=== PATIENT | female | born 1950 | race Caucasian/White ===

== ENCOUNTER 2018-03-19 22:03 | Emergency (ER) | payer MEDICARE, BC ==
[2018-03-19] MEDS ORDERED: Ondansetron 4 MG/2 ML SDV IVPUSH ONE (23:11)
[2018-03-19] MEDS ORDERED: Sodium Chloride 0.9% 10 ML Syringe FLUSH PRN (23:11)
[2018-03-19] MEDS ORDERED: HYDROmorphone 1 MG/ML Syringe IVPUSH ONE (23:11)
[2018-03-19] MEDS ORDERED: Iopamidol 612 MG/ML 100 ML Bottle IV PRN (23:20)
[2018-03-19] MEDS ORDERED: Sodium Chloride 0.9% 75 ML IV SCH (23:30)
[2018-03-20] MEDS ORDERED: Magnesium Citrate Solution 296 ML Bottle PO ONE (00:50)
--- NOTE | 2018-03-20 01:09 | EDM.PDOC ---
ED HPI GENERAL MEDICAL PROBLEM - General Chief Complaint: Abdominal Pain Stated Complaint: RI SIDE PAIN Time Seen by Provider: 03/19/18 23:00 Source of Information: Reports: Patient, Family History Limitations: Reports: No Limitations - History of Present Illness INITIAL COMMENTS - FREE TEXT/NARRATIVE: This lady underwent an exploratory laparotomy February 01 for colorectal and breast cancer. Cancer was extensive enough that they just closed her up without doing any further surgery. She did well afterwards but tonight she complains of right sided pain all day. Chills. BM's ok no vomiting. Abdominal Pain Score (Numeric/FACES): 5 - Related Data Allergies Allergy/AdvReac Type Severity Reaction Status Date / Time morphine Allergy Nausea Verified 03/19/18 22:25 Home Meds: Home Meds Acetaminophen [Tylenol Extra Strength] 2 tab PO Q6HR PRN 03/19/18 [History] Anastrozole [Arimidex] 1 tab PO DAILY 03/19/18 [History] Aspirin 1 tab PO DAILY 03/19/18 [History] Cholecalciferol (Vitamin D3) [Vitamin D3] 1 tab PO DAILY 03/19/18 [History] Ibuprofen 1 tab PO Q6HR PRN 03/19/18 [History] Magnesium 2 tab PO DAILY 03/19/18 [History] Simvastatin [Zocor] 1 tab PO DAILY 03/19/18 [History] sulfaSALAzine [Azulfidine] 3 tab PO BID 03/19/18 [History] Past Medical History HEENT History: Reports: Impaired Vision Genitourinary History: Reports: Other (See Below) Other Genitourinary History: has only one functioning kidney since [employer] History: Reports: Oncologic (Cancer) History: Reports: Breast, Colon - Infectious Disease History Infectious Disease History: Reports: Chicken Pox, Measles, Mumps - Past Surgical History HEENT Surgical History: Reports: Tonsillectomy GI Surgical History: Reports: Other (See Below) Other GI Surgeries/Procedures: abd surgery at [facility] on march 03 opened and closed for colon ca Musculoskeletal Surgical History: Reports: Knee Replacement, Other (See Below) Other Musculoskeletal Surgeries/Procedures:: wrist surgery, rotator cuff right shoulder Social & Family History - Family History Family Medical History: Noncontributory - Tobacco Use Smoking Status *Q: Never Smoker - Caffeine Use Caffeine Use: Reports: Coffee - Recreational Drug Use Recreational Drug Use: No ED ROS GENERAL - Review of Systems Review Of Systems: See Below Constitutional: Reports: Chills HEENT: Reports: No Symptoms Respiratory: Reports: No Symptoms Cardiovascular: Reports: No Symptoms Endocrine: Reports: No Symptoms GI/Abdominal: Reports: Abdominal Pain : Reports: No Symptoms Musculoskeletal: Reports: No Symptoms Skin: Reports: No Symptoms Neurological: Reports: No Symptoms ED EXAM, GI/ABD - Physical Exam Exam: See Below Exam Limited By: No Limitations General Appearance: Alert, WD/WN, Mild Distress Eyes: Bilateral: Normal Appearance Neck: Normal Inspection Respiratory/Chest: Lungs Clear Cardiovascular: Regular Rate, Rhythm, No Murmur GI/Abdominal Exam: Soft, Mass (Right sided mass moderate tenderness) Extremities: Normal Inspection Neurological: Alert, Oriented Course - Vital Signs Last Recorded V/S: Last Vital Signs Temp 37.5 C 03/19/18 22:33 Pulse 97 03/20/18 00:35 Resp 16 03/20/18 00:35 BP 117/52 L 03/20/18 00:35 Pulse Ox 93 L 03/20/18 00:35 - Orders/Labs/Meds Orders: Active Orders 24 hr Category Date Time Status Abdomen Pelvis w Cont [CT] Stat Exams 03/19/18 23:11 Taken UA W/MICROSCOPIC [URIN] Urgent Lab 03/19/18 23:31 Ordered Iopamidol [Isovue-300 (61%)] Med 03/19/18 23:20 Active 100 ml IV . DIRECTED PRN Sodium Chloride 0.9% [Normal Saline] 75 ml Med 03/19/18 23:30 Active IV ASDIRECTED Sodium Chloride 0.9% [Saline Flush] Med 03/19/18 23:11 Active 10 ml FLUSH ASDIRECTED PRN Saline Lock Insert [OM.PC] Urgent Oth 03/19/18 23:10 Ordered Medication Orders Sodium Chloride (Normal Saline) 75 mls @ 3.1 mls/sec IV ASDIRECTED [facility] Last Admin: 03/19/18 23:55 Dose: 3.1 mls/sec Iopamidol (Isovue-300 (61%)) 100 ml IV . DIRECTED PRN PRN Reason: RADIOLOGY EXAM Stop: 03/20/18 23:21 Last Admin: 03/19/18 23:55 Dose: 100 ml Sodium Chloride (Saline Flush) 10 ml FLUSH ASDIRECTED PRN PRN Reason: Keep Vein Open Last Admin: 03/19/18 23:26 Dose: 10 ml Labs: Laboratory Tests 03/19/18 03/19/18 03/19/18 Range/Units 23:22 23:22 23:22 WBC 3.4 L (4.5-11.0) K/uL RBC 3.72 (3.30-5.50) M/uL Hgb 11.9 L (12.0-15.0) g/dL Hct 37.5 (36.0-48.0) % MCV 101 H (80-98) fL MCH 32 H (27-31) pg MCHC 32 (32-36) % Plt Count 266 (150-400) K/uL Neut % (Auto) 59 (36-66) % Lymph % (Auto) 10 L (24-44) % [place] % (Auto) 20 H (2-6) % Eos % (Auto) 11 H (2-4) % Baso % (Auto) 0 (0-1) % Sodium 138 L (140-148) mmol/L Potassium 3.8 (3.6-5.2) mmol/L Chloride 100 (100-108) mmol/L Carbon Dioxide 30 (21-32) mmol/L Anion Gap 11.8 (5.0-14.0) mmol/L BUN 12 (7-18) mg/dL Creatinine 0.8 (0.6-1.0) mg/dL Est Cr Clr Drug Dosing 58.12 mL/min Estimated GFR (MDRD) > 60 (>60) Glucose 141 H (74-106) mg/dL Calcium 9.5 (8.5-10.1) mg/dL Total Bilirubin 0.3 (0.2-1.0) mg/dL AST 48 H (15-37) U/L ALT 61 (12-78) U/L Alkaline Phosphatase 115 (46-116) U/L Total Protein 7.5 (6.4-8.2) g/dL Albumin 3.6 (3.4-5.0) g/dL Globulin 3.9 H (2.3-3.5) g/dL Albumin/Globulin Ratio 0.9 L (1.2-2.2) Amylase 30 (25-115) U/L Lipase 74 (73-393) U/L Urine Color Urine Appearance Urine pH (4.5-8.0) Ur Specific [place] (1.008-1.030) Urine Protein (NEGATIVE) mg/dL Urine Glucose (UA) (NEGATIVE) mg/dL Urine Ketones (NEGATIVE) mg/dL Urine Occult Blood (NEGATIVE) Urine Nitrite (NEGATIVE) Urine Bilirubin (NEGATIVE) Urine Urobilinogen (NORMAL) mg/dL Ur Leukocyte Esterase (NEGATIVE) Urine RBC (0-5) Urine WBC (0-5) Ur Epithelial Cells Amorphous Sediment Urine Bacteria Urine Mucus 03/19/18 Range/Units 23:31 WBC (4.5-11.0) K/uL RBC (3.30-5.50) M/uL Hgb (12.0-15.0) g/dL Hct (36.0-48.0) % MCV (80-98) fL MCH (27-31) pg MCHC (32-36) % Plt Count (150-400) K/uL Neut % (Auto) (36-66) % Lymph % (Auto) (24-44) % [place] % (Auto) (2-6) % Eos % (Auto) (2-4) % Baso % (Auto) (0-1) % Sodium (140-148) mmol/L Potassium (3.6-5.2) mmol/L Chloride (100-108) mmol/L Carbon Dioxide (21-32) mmol/L Anion Gap (5.0-14.0) mmol/L BUN (7-18) mg/dL Creatinine (0.6-1.0) mg/dL Est Cr Clr Drug Dosing mL/min Estimated GFR (MDRD) (>60) Glucose (74-106) mg/dL Calcium (8.5-10.1) mg/dL Total Bilirubin (0.2-1.0) mg/dL AST (15-37) U/L ALT (12-78) U/L Alkaline Phosphatase (46-116) U/L Total Protein (6.4-8.2) g/dL Albumin (3.4-5.0) g/dL Globulin (2.3-3.5) g/dL Albumin/Globulin Ratio (1.2-2.2) Amylase (25-115) U/L Lipase (73-393) U/L Urine Color Yellow Urine Appearance Clear Urine pH 7.0 (4.5-8.0) Ur Specific [place] 1.005 L (1.008-1.030) Urine Protein Negative (NEGATIVE) mg/dL Urine Glucose (UA) 50 H (NEGATIVE) mg/dL Urine Ketones Negative (NEGATIVE) mg/dL Urine Occult Blood Negative (NEGATIVE) Urine Nitrite Negative (NEGATIVE) Urine Bilirubin Negative (NEGATIVE) Urine Urobilinogen Normal (NORMAL) mg/dL Ur Leukocyte Esterase Negative (NEGATIVE) Urine RBC Not seen (0-5) Urine WBC Not seen (0-5) Ur Epithelial Cells Not seen Amorphous Sediment Not seen Urine Bacteria Not seen Urine Mucus Not seen Meds: Medications Generic Name Dose Route Start Last Admin Trade Name Freq PRN Reason Stop Dose Admin Sodium Chloride 75 mls @ 3.1 mls/sec 03/19/18 23:30 03/19/18 23:55 Normal Saline IV 3.1 mls/sec ASDIRECTED [facility]ED[facility]ICK Administration Iopamidol 100 ml 03/19/18 23:20 03/19/18 23:55 Isovue-300 (61%) IV 03/20/18 23:21 100 ml . DIRECTED PRN Administration RADIOLOGY EXAM Sodium Chloride 10 ml 03/19/18 23:11 03/19/18 23:26 Saline Flush FLUSH 10 ml ASDIRECTED PRN Administration Keep Vein Open Discontinued Medications Generic Name Dose Route Start Last Admin Trade Name Freq PRN Reason Stop Dose Admin Hydromorphone HCl 1 mg 03/19/18 23:11 03/19/18 23:25 Dilaudid IVPUSH 03/19/18 23:12 1 mg ONETIME ONE Administration Magnesium Citrate 296 ml 03/20/18 00:50 03/20/18 00:56 Citrate Of Magnesia PO 03/20/18 00:51 296 ml ONETIME ONE Administration Ondansetron HCl 4 mg 03/19/18 23:11 03/19/18 23:25 Zofran IVPUSH 03/19/18 23:12 4 mg ONETIME ONE Administration - Radiology Interpretation Free Text/Narrative:: Abd 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 Large amount of stool to ascending colon where her tenderness is located. - Re-Assessments/Exams Free Text/Narrative Re-Assessment/Exam: 03/20/18 01:22 The patient wanted to have mag citrate here in the ER jbut then decided she would just drink it at home. Discussed water intake. Departure - Departure Time of Disposition: 01:06 Disposition: Home, Self-Care 01 Condition: Fair Clinical Impression: Abdominal pain, Constipation - Discharge Information Referrals: PCP,None [Primary Care Provider] - Forms: ED Department Discharge Additional Instructions: Drink 1 bottle magnesium citrate tonight along with several glasses of water. You should begin having large BMs in 12- 24 hours. A fiber laxative and stool softener may help prevent constipation in the future. See your doctor or return to the ER if this doesn't help - My Orders Last 24 Hours: My Active Orders 03/19/18 23:10 Saline Lock Insert [OM.PC] Urgent 03/19/18 23:11 Abdomen Pelvis w Cont [CT] Stat Sodium Chloride 0.9% [Saline Flush] 10 ml FLUSH ASDIRECTED PRN 03/19/18 23:20 Iopamidol [Isovue-300 (61%)] 100 ml IV . DIRECTED PRN 03/19/18 23:30 Sodium Chloride 0.9% [Normal Saline] 75 ml IV ASDIRECTED 03/19/18 23:31 UA W/MICROSCOPIC [URIN] Urgent - Assessment/Plan Last 24 Hours: My Active Orders 03/19/18 23:10 Saline Lock Insert [OM.PC] Urgent 03/19/18 23:11 Abdomen Pelvis w Cont [CT] Stat Sodium Chloride 0.9% [Saline Flush] 10 ml FLUSH ASDIRECTED PRN 03/19/18 23:20 Iopamidol [Isovue-300 (61%)] 100 ml IV . DIRECTED PRN 03/19/18 23:30 Sodium Chloride 0.9% [Normal Saline] 75 ml IV ASDIRECTED 03/19/18 23:31 UA W/MICROSCOPIC [URIN] Urgent
== END 2018-03-20 01:23 | disposition home or self-care (01) ==
LOC: JP.ED 22:03
DX: K59.00 Constipation, unspecified (principal); Z79.899 Other long term (current) drug therapy; Z88.5 Allergy status to narcotic agent
CPT/HCPCS: 36415; 74177; 80053; 81001; 82150; 83690; 85025; 96374; 96375; 99284; A9270; J1170; J2405; J7030; J7050; Q9967